=== PATIENT | male | born 1960 | race Caucasian/White ===

== ENCOUNTER 2018-04-27 10:34 | Emergency (ER) | payer BC | END 2018-04-27 11:27 | disposition home or self-care (01) | LOC: EDH 10:34 | DX: K02.9 Dental caries, unspecified (principal); I10 Essential (primary) hypertension; E78.5 Hyperlipidemia, unspecified; J45.909 Unspecified asthma, uncomplicated; Z98.890 Other specified postprocedural states; Z87.891 Personal history of nicotine dependence | CPT/HCPCS: 99281 ==